=== PATIENT | female | born 1935 | race Caucasian/White ===

== ENCOUNTER 2017-02-15 08:59 | Observation (INO) ==
[2017-02-15 10:09] LABS: Hemoglobin 13.6 g/dL (11.5-15.4); Mean Corpuscular HGB Conc 32.4 g/dL (31.6-35.5); Mean Corpuscular Hemoglobin 28.1 pg (28.0-33.3); Mean Corpuscular Volume 86.8 fL (83.0-100.0); Mean Platelet Volume 9.6 fL (9.4-12.4); Platelet Count 219 K/mcL (140-400); Red Blood Count 4.84 M/mcL (3.82-4.97); Red Cell Distribution Width 14.1 % (11.5-14.5)
--- NOTE | 2017-02-15 10:12 | Emergency Department Note ---
Disposition Clinical Impression: Slurred speech, Vertigo, Altered level of consciousness, Torticollis Headache Qualifiers: Headache type: unspecified Headache chronicity pattern: acute headache Intractability: not intractable Qualified Code(s): R51 - Headache Disposition: Admitted As Inpatient Condition: Fair Referrals: Annette Yeh CNP [Primary Care Provider] - Forms: ED Satisfaction Letter Headache HPI - General Chief Complaint: ED Headache Stated Complaint: Neck / Back Pain / DAVIS Time Seen by Provider: 02/15/17 09:06 Limitations: no limitations Nursing Notes Reviewed: Yes Vital Signs Reviewed: Yes - History of Present Illness HPI Narrative: Presents with multiple complaints including neck pain, head pain, vertigo and confusion. Her head pain began gradually yesterday at home and is located in the right posterior occipital area and this is constant and sharp and she denies any numbness or weakness of the extremities, facial droop. She does have some slurred speech which has been intermittently occurring for about one year but worse for the last several weeks and is worse today. She also does say she has some intermittent confusion with same duration and is also worse over the last several weeks. She denies any mechanism of injury of her neck however the neck pain is posterior right neck just below the occipital area and is worse when she turns her head. She does not have any fever, blurred vision, rhinorrhea, cough, sneezing, blood in the urine or stool, pain or swelling of the extremities, skin rash or bruising of the skin. The vertigo has also been present for about one year and is worse the last several weeks and is not worse when she turns her head. It is vertiginous dizziness and not lightheaded dizziness. Social history: No smoking, alcohol, drugs. Is here with her Pain Scale: 10 - Related Data Home Medications Medication Instructions Recorded Confirmed Amlodipine Besylate 2.5 mg PO BID 02/15/17 02/15/17 Amoxicillin 875 mg PO BID 02/15/17 02/15/17 Baclofen [Lioresal] 10 mg PO DAILY 02/15/17 02/15/17 Budesonide/Formoterol 160/4.5 2 puff IH BIDR 02/15/17 02/15/17 [Symbicort 160/4.5] Dorzolamide/Timolol [Cosopt] 1 drop BOTH EYES BID 02/15/17 02/15/17 Meclizine [Antivert] 12.5 mg PO TID 02/15/17 02/15/17 Omeprazole [PriLOSEC] 40 mg PO DAILY 02/15/17 02/15/17 Sertraline [Zoloft] 100 mg PO DAILY 02/15/17 02/15/17 Tolterodine Tartrate [Detrol] 2 mg PO BID 02/15/17 02/15/17 Trospium Chloride 20 mg PO BID 02/15/17 02/15/17 Allergies Allergy/AdvReac Type Severity Reaction Status Date / Time No Known Allergies Allergy Verified 03/06/15 10:41 Review of Systems: She does not have any fever, blurred vision, rhinorrhea, cough, sneezing, blood in the urine or stool, pain or swelling of the extremities, skin rash or bruising of the skin. Headache PMH - Past Medical History Medical history: Reports: arthritis, GERD, hypertension, other Female Surgical History: Reports: orthopedic, other Psychiatric history: Reports: anxiety [employer]ET[employer]IAN history: Reports: no [employer] VETERINARIAN history - Social History Smoking Status: Never smoker Alcohol use: Reports: none Drug use: Reports: none Physical Exam CONSTITUTIONAL: Well-appearing; well-nourished; A&O X3, in no apparent distress HEAD: Normocephalic; atraumatic. EYES: PERRL, EOMI, no scleral icterus NOSE: The nose is normal in appearance without rhinorrhea NECK: Supple without rigidity, no HARIKA, there is pain with palpation of the right posterior neck musculature and the patient is holding her head in a fixed position and does have objective evidence of pain when she turns her head side- to-side RESP: Normal chest excursion with respiration; breath sounds clear and equal bilaterally; no wheezes, rhonchi, or rales CARD: Regular rhythm, without murmurs, rub or gallop ABD: Non-distended; non-tender, soft, without rigidity, rebound or guarding SKIN: Normal for age and race; warm and dry; no apparent lesions, no rash NEUROLOGICAL: Patient is alert and oriented times three. Cranial nerves III- XII are intact. Sensory and motor functions are intact. Strength is 5/5 for flexion and extension in all 4 extremities. Finger to nose testing is equal and normal bilaterally. EXTREMITIES: Pulses are 2 plus and equal times 4 extremities, no peripheral edema or calf muscle pain. - General Limitations: no limitations General appearance: alert, in no apparent distress Course Vital Signs Temperature 98.5 F 02/15/17 09:01 Pulse Rate 79 02/15/17 09:01 Respiratory Rate 16 02/15/17 09:01 Blood Pressure 129/74 02/15/17 09:01 O2 Sat by Pulse Oximetry 96 02/15/17 09:01 Temperature 98.5 F 02/15/17 09:01 Pulse Rate 84 02/15/17 10:04 Respiratory Rate 18 02/15/17 10:04 Blood Pressure 139/81 02/15/17 10:04 O2 Sat by Pulse Oximetry 96 02/15/17 10:04 Oxygen Delivery Oxygen Delivery Room Air Headache - MDM Narrative Medical decision making narrative: Patient's symptoms are most consistent with torticollis however there is no mechanism of injury and she does have concerning findings including confusion, vertigo and for that reason she will have a noncontrast head CT as well as a CT of the neck for dissection as well as a chest x-ray and labs. I did review her EKG which shows normal sinus rhythm with a rate of 84 without acute ischemic change. Axes are normal duration of QRS and SD interval are normal. I did compares to previous EKG without significant change. Patient will be watched on the court monitor. [id number] I did review the patient's laboratory and radiologic evaluation with a negative CTA, head CT noncontrast, chest x-ray and the patient does have concerning symptoms including vertigo, confusion, slurred speech so for that reason she will be admitted to the hospital for further evaluation with consideration of MRI scan of the brain and neurologic consultation. The patient is not a thrombolytic candidate as her symptoms started yesterday and does have prolonged duration of symptoms. The patient's stroke scale is 0 and this has been documented. The hospitalist will be paged. 1142 I did speak with the hospitalist physician who except the patient for admission. The patient is comfortable with admission plan. 1148 - Medical Records Medical records reviewed: Yes I reviewed the patient's medical records. - Lab Data Lab results reviewed: Yes I reviewed the patient's lab results. Result diagrams: 02/15/17 10:01 02/15/17 10:01 Lab Results 02/15/17 02/15/17 Range/Units 10:01 10:01 WBC 11.7 H (4.3-11.1) K/mcL RBC 4.84 (3.82-4.97) M/mcL Hgb 13.6 (11.5-15.4) g/dL Hct 42.0 (35.3-44.9) % MCV 86.8 (83.0-100.0) fL MCH 28.1 (28.0-33.3) pg MCHC 32.4 (31.6-35.5) g/dL RDW 14.1 (11.5-14.5) % Plt Count 219 (140-400) K/mcL MPV 9.6 (9.4-12.4) fL Sodium 138 (136-145) mEq/L Potassium 4.1 (3.5-4.5) mEq/L Chloride 105 (98-109) mEq/L Carbon Dioxide 23 (19-29) mEq/L BUN 22 H (7-20) mg/dL Creatinine 0.95 (0.57-1.11) mg/dL Est GFR ( Amer) > 60 (> 60) Est GFR (Non-Af Amer) 57 L (> 60) BUN/Creatinine Ratio 23 (6-26) Glucose 129 H (70-99) mg/dL Calculated Osmolality 291 (280-300) Calcium 9.7 (8.6-10.8) mg/dL - Radiology Data Radiology results reviewed: Yes I reviewed the patient's radiology results. NIH Stroke Scale - Level of Consciousness LOC: Alert - LOC Questions LOC Questions: Answers both correctly - LOC Commands LOC Commands: Performs both correctly - Best Gaze Best Gaze: Normal - Visual Visual: No visual loss - Facial Palsy Facial Palsy: Normal - Motor Arms Motor Arm-Left: No drift for 10 seconds Motor Arm-Right: No drift for 10 seconds - Motor Legs Motor Leg-Left: No drift for 5 seconds Motor Leg-Right: No drift for 5 seconds - Limb Ataxia Limb Ataxia: Normal, No Ataxia - Sensory Sensory: Normal - Best Language Best Language: No aphasia - Dysarthria Dysarthria: Normal - Extinction and Inattention Extinction and Inattention: Normal - NIHSS Total Score NIHSS Total Score: 0
[2017-02-15 10:21] LABS: BUN/Creatinine Ratio 23 (6-26); Blood Urea Nitrogen 22 mg/dL (7-20); Calcium 9.7 mg/dL (8.6-10.8); Carbon Dioxide 23 mEq/L (19-29); Chloride 105 mEq/L (98-109); Glucose 129 mg/dL (70-99); Osmolality,Calculated 291 (280-300); Potassium 4.1 mEq/L (3.5-4.5); Sodium 138 mEq/L (136-145); eGFR For African Americans > 60 (> 60); eGFR For Non-African Americans 57 (> 60)
[2017-02-15] MEDS ORDERED: Naloxone 0.4 MG/ML INJ IVP PRN (13:25)
[2017-02-15] MEDS: *HR* HYDROcodone/Acet 5/325 mg TABLET PO PRN ×2 (13:37→20:39)
--- NOTE | 2017-02-15 13:41 | Internal Med History&Physical ---
Date of Encounter: 02/15/17 Time of Encounter: 13:36 Assessment and Plan (1) CVA (cerebral vascular accident) Current visit: Yes Status: Suspected Patient presents [facility] today with new slurred speech, worsening vertigo, confusion and changes in cognition, and right posterior occipital headache with right posterior neck pain. This is concerning for possible CVA and the patient will need to be ruled out. CTA of neck was unremarkable showing no stenosis of left or right carotid artery, no dissection , only mild narrowing of left subclavian artery. CT of head was negative for any acute cranial process only exhibiting mild chronic small vessel ischemic changes. MRI of head without contrast Urinalysis ordered with reflex if indicated TSH, and cycle troponins Orthostatic vital signs Every 4 hours neuro checks NIH SS Consider consulting neurology based upon results of MRI Qualifiers: CVA mechanism: unspecified Qualified Code(s): I63.9 - Cerebral infarction, unspecified (2) Headache Current visit: Yes Status: Acute Patient is experiencing right posterior occipital headache, and strokelike symptoms. CT of the head unremarkable, CT of neck unremarkable, patient does not appear to have had a CVA however continues to be ruled out at this time. The headache is also associated with right neck pain and torticollis. I suspect that the torticollis is responsible for the posterior occipital headache. Flexeril 10 mg 3 times a day. Qualifiers: Headache type: unspecified Headache chronicity pattern: acute headache Intractability: not intractable Qualified Code(s): R51 - Headache (3) Vertigo Current visit: Yes Status: Chronic Patient has history of chronic vertigo which she takes meclizine. However, at this time the vertigo appears to be getting worse and she is now having slurred speech, cognitive changes, and headache. CTA neck and CT of head were unremarkable. Patient will undergo MRI of head without contrast for further evaluation Continue meclizine on dose falls percussion and up with assist only (4) Torticollis Current visit: Yes Status: Acute Acute right neck pain accompanied by right posterior occipital headache. Patient reports the pain again possibly 48 hours ago, however with the last 24 hours and progressively worse. Flexeril 10 mg 3 times a day [place] 5/325 every 6 hours when necessary for moderate pain. We will adjust pain medications as necessary and as patient tolerates. (5) DVT prophylaxis Current visit: Yes Status: Acute Due to hospital course and prolonged immobility patient is a risk for DVT. Lovenox 40 mg subcutaneous daily Internal Medicine - H&P: HPI Chief complaint: slurred speech, vertigo, posterior neck and head pain, alterations in LOC Admitted From: Home Plans for Post Hospital Care: Home History of present illness: Ms. Telles is a 81 year old female with a past medical history of arthritis, GERD , hypertension, anxiety. Presents to the emergency today with a 2 day history of slurred speech, vertigo, alterations in level of consciousness, and posterior right occipital head and right neck pain. She describes this pain as constant and sharp, the pain began 2 days ago has been progressively getting worse for the last day. Denies any mechanism of injury. She is concerned because she noticed some intermittent confusion with what she reports as some short-term memory loss over the last several weeks, with confusion getting worse over the last 48 hours and even more pronounced within the last 24 hours. She admits to having the vertigo for greater than one year. Which she is on meclizine, however, the vertigo appears to be worse within the last day. Additionally she admits to headache fatigue, new blurred vision, gait changes with what she reports as a shuffling gait, slurred speech, and troubles with cognition. She denies any weight loss, night sweats, chest pain, palpitations, dyspnea. CTA of neck did not find any stenosis in the left or right carotid artery, no dissection noted, only mild narrowing of left subclavian artery secondary to atherosclerotic plaque. CT of head finds no acute intracranial process, only finding chronic small vessel ischemic changes. Metabolic panel unremarkable, CBC, WBC of 11.7. She is being admitted to [address] for further workup and evaluation Past Med Surg Social Fam HX - Past Medical History Medical history: arthritis, GERD, hypertension, other Psychiatric history: anxiety - Past Surgical History Surgical History: orthopedic, other - Social History Smoking Status: Never smoker Smokeless Tobacco Status: No Alcohol use: none Drug use: none - Family History Mother Living Status: Age at : 94 Cause of : Afib Hx Family Cardiac Disorders: Yes (Afib) Hx Family Endocrine Disorder: Yes (Borderline Diabetic) Father Living Status: Age at : 80 Cause of : diverticulitis Hx Family GI Disorders: Yes (diverticulitis) Hx Family Endocrine Disorder: Yes (diabetes) Internal Medicine - H&P: Meds Amlodipine Besylate 2.5 mg PO BID 02/15/17 [History] Amoxicillin 875 mg PO BID 02/15/17 [History] Baclofen [Lioresal] 10 mg PO DAILY 02/15/17 [History] Budesonide/Formoterol 160/4.5 [Symbicort 160/4.5] 2 puff IH BIDR 02/15/17 [ History] Dorzolamide/Timolol [Cosopt] 1 drop BOTH EYES BID 02/15/17 [History] Meclizine [Antivert] 12.5 mg PO TID 02/15/17 [History] Omeprazole [PriLOSEC] 40 mg PO DAILY 02/15/17 [History] Sertraline [Zoloft] 100 mg PO DAILY 02/15/17 [History] Tolterodine Tartrate [Detrol] 2 mg PO BID 02/15/17 [History] Trospium Chloride 20 mg PO BID 02/15/17 [History] 3 Allergy/AdvReac Type Severity Reaction Status Date / Time azithromycin [From Zithromax] AdvReac Rash Verified 02/15/17 12:49 All Systems PM: A 10-system review of systems was performed and is negative for pertinent findings except as documented above in the HPI. - Constitutional Constitutional: fatigue, lethargy, no chills, no excessive sweating, no fever(s) , no falls, no night sweats, no weakness, no weight loss - EENT Eyes: blurry vision, no change in vision, no discharge, no loss of peripheral vision, no loss of vision, no pain, no photophobia, no spots in vision Ears: decreased hearing (Has decreased hearing but admits that of an ongoing greater than 3 years and is being treated), no ear discharge, no ear pain, no tinnitus Nose, mouth and throat: no dysphagia, no nasal discharge, no neck pain, no sore throat - Cardiovascular Cardiovascular ROS IM: no chest pain, no diaphoresis, no dyspnea, no dyspnea on exertion, no edema, no irregular heart rhythm, no lightheadedness, no palpitations, no syncope - Respiratory Respiratory: no cough, no dyspnea, no wheezing, no excessive phlegm production - Gastrointestinal Gastrointestinal: no abdominal pain, no diarrhea, no hematemesis, no hematochezia, no melena, no nausea, no vomiting - Genitourinary Genitourinary: no change in urinary stream, no dysuria, no flank pain, no hematuria - Musculoskeletal Musculoskeletal ROS IM: no numbness, no tingling - Integumentary Integumentary IM: no rash, no unusual bruising - Neurological Neurological ROS: abnormal gait (She mentions a new shuffling gait), abnormal speech, confusion (Intermittent confusion and notes changes in cognition from her baseline), disequilibrium, dizziness, headache(s) (Posterior occipital headache and right neck pain), memory loss (10 minutes to maybe some short-term memory loss), vertigo, no burning sensations, no convulsions, no focal weakness , no frequent falls, no lack of coordination, no loss of vision, no numbness, no tingling, no tremor(s) - Hematologic/Lymphatic Hematologic/Lymphatic: no easy bruising - Constitutional Vitals: Temp Pulse Resp BP Pulse Ox 98.6 F 88 17 167/80 93 02/15/17 12:32 02/15/17 12:32 02/15/17 12:32 02/15/17 12:32 02/15/17 12:32 General appearance: Present: cooperative, mild distress, A&O X 3, answers questions appropriately - Head Head exam: Present: atraumatic, normocephalic - Eye Eye exam: Present: PERRL, conjuntiva pink, sclera anicteric Pupils: Present: PERRL - Neck Neck exam general surgery: Present: nuchal rigidity (Rigidity and tortuosity noted on right neck; patient has torticollis), supple, trachea midline. Absent : full ROM, lymphadenopathy, tenderness - Expanded Neck Exam Neck exam: Absent: anterior neck swelling, carotid bruit, tenderness, thyroid mass, tracheal deviation - Respiratory Respiratory exam: Present: CTAB. Absent: accessory muscle use, rales, rhonchi, wheezes - Cardiovascular Cardiovascular exam: Present: RRR, +S1, +S2. Absent: diastolic murmur, gallop, rubs, systolic murmur - GI/Abdominal GI/Abdominal exam: Present: normal bowel sounds, soft, no peritoneal signs. Absent: distended, tenderness - Extremities Exam Extremities exam: Present: warm, radial pulses palpable and symmetrical. Absent : calf tenderness, cyanotic, pedal edema - Neurological Exam Neurological exam: Present: alert, CN II-XII intact, oriented X3, no focal deficits, strengths equal and symetr throughout. Absent: motor sensory deficit , pronater drift, facial droop, speech deficit - Expanded Neurological Exam Neurological exam expanded: Absent: expressive aphasia, inattentive, memory loss -recent event, receptive aphasia Patient oriented to: Present: person, place, time Speech: Absent: garbled, slurred Cranial Nerves: EOM's intact PM: Normal, gag reflex PM: Normal, nystagmus PM: Normal, tongue deviation PM: Normal Cerebellar function: heel to takins: Normal, Romberg: Normal Upper motor neuron: Babinski sign: Normal, Todd neglect: Normal, pronator drift : Normal, sensory extinction: Normal Sensory exam: lower extremity light touch: Normal, lower extremity pin prick: Abnormal Left, Abnormal Right (Minimal amount of difficulty differentiating between sharp and dull sensation), lower extremity temperature: Normal, UE 2 point discrimination: Normal Neuro motor strength exam: LUE: 5, RUE: 5, LLE: 5, RLE: 5 Coma Scale Eye Opening: Spontaneous Coma Scale Motor Response: Obeys Commands Coma Scale Verbal Response: Oriented Coma Scale Total: 15 - Skin Skin exam: Present: dry, intact Internal Med - H&P Results - Labs CBC & Chem 7: 02/15/17 10:01 02/15/17 10:01 - EKG Data Prior EKG available for review: yes When compared to previous EKG: there is no significant change EKG comments: 02/15/17 13:48 EKG showing normal sinus rhythm - Diagnostic Studies CT scan - head Status: image reviewed by me Additional comments: CT of the head negative for acute intracranial process, only revealing mild chronic small vessel ischemic changes Other Images Status: image reviewed by me Additional comments: CTA of neck negative for stenosis of right or left carotid artery, no dissection noted, only exhibiting mild narrowing of the left subclavian artery secondary to atherosclerotic plaque.
[2017-02-15 15:00] LABS: C-Reactive Protein 46 mg/L (Less than 5)
--- NOTE | 2017-02-15 17:11 | Electrocardiograph Report ---
[place] [id number] Test Date: 2017-02-15 Pat Name: Ciro Telles Department: 104 Room: 3B Gender: F Cobbler Sole: AM : 1935 Requested By: Mik Pascal Order Number: [id number] Reading MD: Quentin Del Rosario DO Measurements Intervals [place] Rate: 84 P: 52 TN: 152 QRS: -26 QRSD: 95 T: 52 QT: 367 QTc: 408 Interpretive Statements SINUS RHYTHM Electronically Signed On 02-15-2017 17:10:10 EDT by Quentin Del Rosario DO
[2017-02-15] MEDS: Budesonide/Formoterol 160/4.5 MDI IH SCH (19:43)
[2017-02-15] MEDS: Amoxicillin 500 MG CAPSULE PO SCH (20:39)
[2017-02-15] MEDS: amLODIPine 5 MG TABLET PO SCH (20:40)
[2017-02-15] MEDS: Dorzolamide/Timolol OPTH 10 ML BOTTLE BOTH EYES SCH (20:44)
[2017-02-15] MEDS ORDERED: NON-FORMULARY MEDICATION 1 EACH EACH (Trospium Chloride [Trospium Chloride] 20 MG) PO SCH (21:00)
[2017-02-15 21:59] LABS: Bilirubin,Urine Negative (Negative); Blood,Urine Trace (Negative); Clarity,Urine Clear (Clear); Color,Urine Yellow (Yellow); Glucose,Urine (UA) Normal (Normal); Ketones,Urine Negative (Negative); Leukocyte Esterase,Urine Negative (Negative); Nitrite,Urine Negative (Negative); Protein,Urine Negative (Neg-Trace); Specific Gravity,Urine > 1.030 (1.010-1.025); Urobilinogen,Urine Normal (Normal)
[2017-02-15 22:03] LABS: Bacteria,Urine None Seen per hpf (None-Few); Hyaline Casts,Urine None Seen per lpf (None-Few); RBC,Urine 0-3 per hpf (0-3); Squamous Epithelial Cell,Urine Moderate per lpf (None-Few); WBC,Urine 0-3 per hpf (0-3)
[2017-02-15] MEDS ORDERED: *HR* Morphine 2 MG/ML SYRINGE IVP STA (22:44)
[2017-02-16 02:07] LABS: Basophils % 0.2 %; Eosinophils # 0.1 K/mcL (0.0-0.6); Eosinophils % 0.6 %; Hematocrit 38.8 % (35.3-44.9); Hemoglobin 12.6 g/dL (11.5-15.4); Immature Granulocytes % 0.7 % (0-4); Lymphocytes # 1.7 K/mcL (0.6-4.6); Lymphocytes % 16.6 %; Mean Corpuscular HGB Conc 32.5 g/dL (31.6-35.5); Mean Corpuscular Hemoglobin 28.4 pg (28.0-33.3); Mean Corpuscular Volume 87.4 fL (83.0-100.0); Mean Platelet Volume 9.2 fL (9.4-12.4); Monocytes # 1.1 K/mcL (0.0-1.3); Monocytes % 10.5 %; Neutrophils # 7.2 K/mcL (1.6-8.9); Platelet Count 205 K/mcL (140-400); Red Blood Count 4.44 M/mcL (3.82-4.97); Red Cell Distribution Width 14.1 % (11.5-14.5); Segmented Neutrophils % 71.4 %
[2017-02-16 02:19] LABS: BUN/Creatinine Ratio 19 (6-26); Blood Urea Nitrogen 17 mg/dL (7-20); Calcium 9.4 mg/dL (8.6-10.8); Carbon Dioxide 25 mEq/L (19-29); Chloride 103 mEq/L (98-109); Glucose 127 mg/dL (70-99); Osmolality,Calculated 285 (280-300); Potassium 3.9 mEq/L (3.5-4.5); Sodium 136 mEq/L (136-145); eGFR For African Americans > 60 (> 60); eGFR For Non-African Americans > 60 (> 60)
[2017-02-16] MEDS: *HR* HYDROcodone/Acet 5/325 mg TABLET PO PRN (05:54)
[2017-02-16] MEDS ORDERED: *HR* Enoxaparin 40 MG/0.4 ML SYRINGE SQ SCH (06:00)
[2017-02-16] MEDS: Budesonide/Formoterol 160/4.5 MDI IH SCH (07:51)
[2017-02-16] MEDS: Ketorolac 30 MG/ML VIAL IVP PRN ×2 (08:02→14:16)
[2017-02-16 08:32] LABS: Hemoglobin A1C 5.7 %
[2017-02-16] MEDS: Amoxicillin 500 MG CAPSULE PO SCH (08:34)
[2017-02-16] MEDS: amLODIPine 5 MG TABLET PO SCH (08:35)
[2017-02-16] MEDS: Dorzolamide/Timolol OPTH 10 ML BOTTLE BOTH EYES SCH (08:37)
[2017-02-16 08:56] LABS: Chol/HDL Ratio 4.1 (0-4.9); Cholesterol 204 mg/dL (< 200); HDL Cholesterol 50 mg/dL (40-59); LDL Cholesterol,Calculated 133 mg/dL (0-99); Triglycerides 104 mg/dL (< 150)
[2017-02-16] MEDS ORDERED: Baclofen 10 MG TABLET PO PRN (09:45)
[2017-02-16 11:45] VITALS: BP 123/73
--- NOTE | 2017-02-16 13:38 | Discharge Summary ---
Date of Encounter: 02/16/17 Time of Encounter: 10:00 - Discharge Diagnosis (1) Cervicalgia Priority: Primary Status: Acute (2) Vertigo Priority: Secondary Status: Chronic (3) Headache Priority: Secondary Status: Chronic Qualifiers: Headache type: unspecified Headache chronicity pattern: acute headache Intractability: not intractable Qualified Code(s): R51 - Headache (4) Torticollis Priority: Secondary Status: Acute (5) CVA (cerebral vascular accident) Priority: Secondary Status: Ruled-out Qualifiers: CVA mechanism: unspecified Qualified Code(s): I63.9 - Cerebral infarction, unspecified - Discharge Medications Prescriptions: Ibuprofen [Motrin] 600 mg PO Q8HR #20 tab Cyclobenzaprine [Flexeril] 10 mg PO TID #30 tab Tramadol HCl [Ultram] 50 mg PO TID PRN #20 tab PRN Reason: Moderate to severe pain Home Medications: Amlodipine Besylate 2.5 mg PO BID 02/15/17 [History] Amoxicillin 875 mg PO BID 02/15/17 [History] Baclofen [Lioresal] 10 mg PO DAILY 02/15/17 [History] Budesonide/Formoterol 160/4.5 [Symbicort 160/4.5] 2 puff IH BIDR 02/15/17 [ History] Dorzolamide/Timolol [Cosopt] 1 drop BOTH EYES BID 02/15/17 [History] Meclizine [Antivert] 12.5 mg PO TID 02/15/17 [History] Omeprazole [PriLOSEC] 40 mg PO DAILY 02/15/17 [History] Sertraline [Zoloft] 100 mg PO DAILY 02/15/17 [History] Tolterodine Tartrate [Detrol] 2 mg PO BID 02/15/17 [History] Trospium Chloride 20 mg PO BID 02/15/17 [History] Cyclobenzaprine [Flexeril] 10 mg PO TID #30 tab 02/16/17 [Rx] Ibuprofen [Motrin] 600 mg PO Q8HR #20 tab 02/16/17 [Rx] Tramadol HCl [Ultram] 50 mg PO TID PRN #20 tab 02/16/17 [Rx] Allergies/Adverse Reactions: 3 Allergy/AdvReac Type Severity Reaction Status Date / Time azithromycin [From Zithromax] AdvReac Rash Verified 02/15/17 12:49 Procedures/tests Complete & Pending: Procedures Performed prior 72 hours Category Date Time Status CT cervical spine wo con [CT] Routine Cat Scan 02/15/17 14:19 Completed MR head/brain wo con [MR] Routine MRI 02/15/17 13:16 Completed Date of admission: 02/15/17 11:58 Primary care physician: Annette Yeh CNP Discharging clinician: Salvatore Herman Anticipated date of discharge: 02/16/17 - Patient Status Disposition: Home, Self-Care Condition: Fair Functional capacity at discharge: independent ambulation Overall status at discharge: patient is progressing back to baseline - Discharge Instructions Instructions: Tension Headache (DC), Vertigo (DC), Spasmodic Torticollis (DC) Follow Up With: Annette Yeh CNP [Primary Care Provider] - 02/27/17 4:15 pm (in 1-2 weeks) Additional Instructions: Please follow up with neurology in 1-2 weeks if symptoms do not improve - Diet and Activity Activity: increase activity as tolerated Diet: low fat, low cholesterol, low salt diet Hospital course: Ms. Telles is a 81 year old female patient with a history of arthritis, hypertension, gastroesophageal reflux disease, rheumatoid arthritis was hospitalized here with symptoms of right-sided neck pain and occipital headache. She also had chronic complaints of a tight though intermittent confusion and slurred speech. As such she was worked up for possible TIA and stroke with CT scan of the head and MRI of the brain which did not show any acute stroke. CT angiogram of the neck was also done which did not show any significant stenosis. She appeared to be having torticollis on examination with the right-sided paraspinal tenderness in the cervical region. A CT scan of the cervical spine was done which showed no fracture but she did have multilevel degenerative changes. Her pain did not respond to narcotic medications. She did receive Flexeril and intravenous Toradol which seemed to help the pain better. At this time, she will be discharged home and will follow up with her primary care provider. She will complete a short course of treatment with Motrin and Flexeril for pain control and torticollis. If her symptoms do not improve, she may benefit from referral to neurology for additional evaluation and treatment plan. - Time Spent with Patient Total time spent providing and/or coordinating discharge services: Greater than 30 minutes (40 min) - Constitutional Vitals: Temp Pulse Resp BP Pulse Ox 97.5 F L 74 18 123/73 91 02/16/17 11:43 02/16/17 11:43 02/16/17 08:10 02/16/17 11:43 02/16/17 11:43 General appearance: Present: cooperative, mild distress, A&O X 3, answers questions appropriately - Neck Neck exam general surgery: Present: tenderness (right cervical paraspinal region ), supple, trachea midline. Absent: lymphadenopathy - Respiratory Respiratory exam: Present: CTAB. Absent: accessory muscle use, rales, rhonchi, wheezes - Cardiovascular Cardiovascular exam: Present: RRR, +S1, +S2. Absent: diastolic murmur, gallop, rubs, systolic murmur - GI/Abdominal GI/Abdominal exam: Present: normal bowel sounds, soft, no peritoneal signs. Absent: distended, tenderness - Extremities Exam Extremities exam: Present: warm, radial pulses palpable and symmetrical. Absent : calf tenderness, cyanotic, pedal edema - Neurological Exam Neurological exam: Present: CN II-XII intact, oriented X3, no focal deficits. Absent: facial droop, speech deficit
== END 2017-02-16 14:55 | disposition home or self-care (01) ==
LOC: 3BNU 08:59 → EMEROO 08:59 → SUATTDRO 11:58 → 3BNU 12:17
PROVIDERS: ADMIT Nurse Practitioner; ATTEND Internal Medicine

== ENCOUNTER 2021-04-19 16:33 | Inpatient (IN) ==
[2021-04-19] MEDS ORDERED: Naloxone 0.4 MG/ML INJ IVP PRN (22:11)
[2021-04-19] MEDS ORDERED: *HR* HYDROcodone/Acet 5/325 mg TABLET PO PRN (22:11)
[2021-04-19] MEDS ORDERED: Melatonin 3 MG TABLET PO PRN (22:11)
[2021-04-19] MEDS ORDERED: Acetaminophen 325 MG TABLET PO PRN (22:11)
[2021-04-19] MEDS ORDERED: Ondansetron ODT 4 MG TAB.RAPDIS SL PRN (22:11)
[2021-04-19] MEDS: *HR* OxyCODONE Immed Rel 5 MG TABLET PO PRN (22:45)
[2021-04-19 23:04] LABS: Basophils % 0.3 %; Eosinophils # 0.1 K/mcL (0.0-0.6); Eosinophils % 0.7 %; Hematocrit 36.6 % (35.3-44.9); Immature Granulocytes % 0.9 % (0-4); Lymphocytes # 1.1 K/mcL (0.6-4.6); Lymphocytes % 10.9 %; Mean Corpuscular HGB Conc 32.8 g/dL (31.6-35.5); Mean Corpuscular Hemoglobin 29.8 pg (28.0-33.3); Mean Corpuscular Volume 90.8 fL (83.0-100.0); Mean Platelet Volume 9.5 fL (9.4-12.4); Monocytes # 0.6 K/mcL (0.0-1.3); Neutrophils # 8.2 K/mcL (1.6-8.9); Platelet Count 212 K/mcL (140-400); Red Blood Count 4.03 M/mcL (3.82-4.97); Red Cell Distribution Width 13.8 % (11.5-14.5); Segmented Neutrophils % 81.2 %; White Blood Count 10.1 K/mcL (4.3-11.1)
[2021-04-20] MEDS: *HR* OxyCODONE Immed Rel 5 MG TABLET PO PRN (04:58)
[2021-04-20 05:20] LABS: Alanine Aminotransferase 11 Units/L (7-52); Albumin 3.6 g/dL (3.5-5.7); Albumin/Globulin Ratio 1.4 (1.1-2.2); Alkaline Phosphatase 77 Units/L (34-104); Aspartate Amino Transferase 18 Units/L (13-39); BUN/Creatinine Ratio 19 (6-26); Bilirubin,Total 0.6 mg/dL (0.3-1.0); Blood Urea Nitrogen 16 mg/dL (8-23); Calcium 8.8 mg/dL (8.6-10.3); Carbon Dioxide 27 mEq/L (23-29); Chloride 102 mEq/L (98-107); Chol/HDL Ratio 4.2 (0-4.9); Cholesterol 202 mg/dL (< 200); Globulin 2.6 g/dL (2.4-3.5); Glucose 125 mg/dL (70-105); HDL Cholesterol 48 mg/dL (40-59); LDL Cholesterol,Calculated 127 mg/dL (< 100); Magnesium 1.7 mg/dL (1.6-2.6); Osmolality,Calculated 285 (280-300); Potassium 3.6 mEq/L (3.5-5.1); Sodium 136 mEq/L (136-145); Total Protein 6.2 g/dL (6.4-8.9); Triglycerides 136 mg/dL (< 150); eGFR For African Americans > 60 (> 60); eGFR For Non-African Americans > 60 (> 60)
[2021-04-20] MEDS ORDERED: 0.9 % Sodium Chloride 1,000 ML IVC SCH (07:00)
[2021-04-20] MEDS ORDERED: *HR* Propofol 200 MG/20 ML VIAL IVP ONE (12:23)
[2021-04-20] MEDS ORDERED: Lidocaine -MPF 2% 5 ML VIAL ONE (12:23)
[2021-04-20] MEDS ORDERED: *HR* Rocuronium Bromide 50 MG/5 ML VIAL ONE (12:23)
[2021-04-20] MEDS ORDERED: Ondansetron 4 MG/2 ML VIAL ONE (12:23)
[2021-04-20] MEDS ORDERED: Lidocaine HCL 4 ML Topical Solution (Laryng-O-Jet Kit Sterile Pak) TP ONE (12:23)
[2021-04-20] MEDS ORDERED: *HR* FentaNYL (PF) 100 MCG/2 ML VIAL ONE (12:23)
[2021-04-20] MEDS ORDERED: *HR* Succinylcholine 200 MG/10 ML VIAL IVP ONE (12:23)
[2021-04-20] MEDS ORDERED: CeFAZolin Syr 2,000MG/20 ML 2,000 MG/20 ML SYRINGE IVPB ONE (12:29)
[2021-04-20] MEDS ORDERED: *HR* FentaNYL (PF) 100 MCG/2 ML VIAL IVP PRN (12:43)
[2021-04-20] MEDS ORDERED: *HR* OxyCODONE/APAP 5/325 TABLET PO PRN (12:43)
[2021-04-20] MEDS ORDERED: Ondansetron 4 MG/2 ML VIAL IVP PRN ×2 (12:43→17:08)
[2021-04-20] MEDS ORDERED: Ringers Solution, Lactated 1,000 ML IVC SCH ×3 (12:45→22:10)
[2021-04-20] MEDS ORDERED: Albumin Human 5% 25.0 GM/500 ML IV.SOLN ONE (13:28)
[2021-04-20] MEDS ORDERED: Vancomycin 1,000 MG VIAL ONE (13:36)
[2021-04-20] MEDS ORDERED: TOTAL JOINT MIXTURE (100ML) INTRAART ONE (13:45)
[2021-04-20] MEDS ORDERED: Povidone-Iodine 45 ML, Sodium Chloride IRRigation 1,000 ML IR ONE (13:45)
[2021-04-20 14:44] LABS: Bilirubin,Urine Negative (Negative); Blood,Urine Trace (Negative); Clarity,Urine Turbid (Clear); Color,Urine Light-Yellow (Yellow); Glucose,Urine (UA) Normal (Normal); Ketones,Urine Trace mg/dL (Negative); Leukocyte Esterase,Urine Trace (Negative); Nitrite,Urine Negative (Negative); Protein,Urine 100 mg/dL (Neg-Trace); Specific Gravity,Urine 1.024 (1.010-1.025); Urobilinogen,Urine Normal (Normal)
[2021-04-20 14:47] LABS: Squamous Epithelial Cell,Urine Present per hpf (None-Few)
[2021-04-20 14:48] LABS: RBC,Urine Present per hpf (0-3); Transitional Epi Cells,Urine Present per hpf (None-Few)
[2021-04-20 14:49] LABS: Bacteria,Urine Present per hpf (None-Few); WBC,Urine Present per hpf (0-3)
[2021-04-20] MEDS ORDERED: *HR* Remifentanil 2 MG VIAL IVP ONE (15:44)
[2021-04-20 16:48] LABS: ABG Base Excess -4 mEq/L (-2 to 3); ABG Chloride 108 mEq/L (98-107); ABG Glucose 123 mg/dL (60-95); ABG HCO3 21 mEq/L (21-27); ABG Ionized Calcium 1.15 mmol/L (1.15-1.35); ABG Oxygen Saturation 96 % (95-98); ABG PCO2 37 mmHg (35-45); ABG PH 7.37 pH Units (7.32-7.45); ABG PO2 86 mmHg (85-104); ABG TCO2 23 mEq/L (20-26)
[2021-04-20] MEDS ORDERED: Sugammadex Sodium 200 MG/2 ML VIAL IV ONE (16:58)
[2021-04-20] MEDS ORDERED: Naloxone 0.4 MG/ML INJ IVP PRN ×2 (17:08→22:10)
[2021-04-20] MEDS ORDERED: Sennosides 8.6 MG TABLET PO PRN ×2 (17:08→22:10)
[2021-04-20] MEDS ORDERED: *HR* OxyCODONE Immed Rel 5 MG TABLET PO PRN ×2 (17:08→22:10)
[2021-04-20] MEDS ORDERED: *HR* Promethazine 25 MG/ML VIAL IM PRN ×2 (17:08→22:10)
[2021-04-20] MEDS ORDERED: MOM Conc 10 ML UD.LIQ PO PRN ×2 (17:08→22:10)
[2021-04-20] MEDS ORDERED: *HR* Metoprolol 5 MG/5 ML VIAL IVP ONE (17:46)
[2021-04-20] MEDS ORDERED: niCARdipine 40 MG/200 ML MLS IVC ONE (17:47)
[2021-04-20] MEDS ORDERED: Furosemide 40 MG/4 ML VIAL ONE (17:52)
[2021-04-20] MEDS ORDERED: Ketorolac 15 MG/ML VIAL IVP SCH (18:00)
[2021-04-20] MEDS ORDERED: *HR* HYDROMORPHONE 2 MG/ML VIAL ONE (18:05)
[2021-04-20 18:35] LABS: ABG Base Excess -4 mEq/L (-2 to 3); ABG HCO3 21 mEq/L (21-27); ABG Oxygen Saturation 92 % (95-98); ABG PCO2 37 mmHg (35-45); ABG PH 7.37 pH Units (7.32-7.45); ABG PO2 65 mmHg (85-104); ABG TCO2 23 mEq/L (20-26); Blood Gas VT 450 cc
[2021-04-20] MEDS ORDERED: *HR* HYDROmorphone 2 MG/ML SYRINGE IVP ONE (18:54)
[2021-04-20] MEDS ORDERED: *HR* HYDROmorphone (PF) 1 MG/ML SYRINGE ONE (18:55)
[2021-04-20] MEDS ORDERED: amLODIPine 5 MG TABLET PO SCH (19:15)
[2021-04-20] MEDS ORDERED: Melatonin 3 MG TABLET PO SCH (21:00)
[2021-04-20] MEDS ORDERED: Budesonide/Formoterol 160/4.5 1 PUFF INH IH SCH (22:00)
[2021-04-20] MEDS ORDERED: Ondansetron ODT 4 MG TAB.RAPDIS SL PRN (22:10)
[2021-04-20 22:29] LABS: Hematocrit 31.9 % (35.3-44.9)
[2021-04-20 22:30] LABS: Hemoglobin 10.2 g/dL (11.5-15.4)
[2021-04-20] MEDS ORDERED: CeFAZolin 2 GM/120 ML BAG IVPB SCH (23:00)
[2021-04-20] MEDS: Ketorolac 15 MG/ML VIAL IVP SCH (23:42)
[2021-04-20] MEDS: CeFAZolin 2 GM/120 ML BAG IVPB SCH (23:44)
[2021-04-20] MEDS: Aspirin 81 MG TAB.CHEW PO SCH (23:45)
[2021-04-21 03:29] LABS: Basophils % 0.2 %; Hematocrit 29.7 % (35.3-44.9); Hemoglobin 9.4 g/dL (11.5-15.4); Immature Granulocytes % 1.4 % (0-4); Lymphocytes % 7.1 %; Mean Corpuscular HGB Conc 31.6 g/dL (31.6-35.5); Mean Corpuscular Hemoglobin 29.7 pg (28.0-33.3); Mean Platelet Volume 9.5 fL (9.4-12.4); Monocytes # 0.9 K/mcL (0.0-1.3); Monocytes % 6.3 %; Neutrophils # 11.8 K/mcL (1.6-8.9); Platelet Count 204 K/mcL (140-400); Red Blood Count 3.16 M/mcL (3.82-4.97); Red Cell Distribution Width 14.2 % (11.5-14.5); White Blood Count 13.9 K/mcL (4.3-11.1)
[2021-04-21 05:13] LABS: Calcium 7.7 mg/dL (8.6-10.3); Potassium 4.2 mEq/L (3.5-5.1)
[2021-04-21] MEDS: Ketorolac 15 MG/ML VIAL IVP SCH (06:17)
[2021-04-21] MEDS: Budesonide/Formoterol 160/4.5 1 PUFF INH IH SCH ×2 (08:00→22:05)
[2021-04-21] MEDS ORDERED: Ascorbic Acid 500 MG TABLET PO SCH (08:00)
[2021-04-21] MEDS: Tiotropium 10 INH DOSE IH SCH (08:00)
[2021-04-21] MEDS: Cholecalciferol (D-3) 1,000 UNIT (25MCG) TABLET PO SCH (08:17)
[2021-04-21] MEDS: Aspirin 81 MG TAB.CHEW PO SCH ×2 (08:18→20:12)
[2021-04-21] MEDS: Ascorbic Acid 500 MG TABLET PO SCH ×2 (08:18→16:46)
[2021-04-21] MEDS: Multivit/Ca/Min/Fe/FA 1 TAB TABLET PO SCH (08:18)
[2021-04-21] MEDS: Piperacillin/Tazobactam 3.375 GM in 0.9 % Sodium Chloride Mini Bag 100 ML IVPB SCH ×2 (08:19→16:45)
[2021-04-21] MEDS ORDERED: Multivit/Ca/Min/Fe/FA 1 TAB TABLET PO SCH (09:00)
[2021-04-21] MEDS ORDERED: Cholecalciferol (D-3) 1,000 UNIT (25MCG) TABLET PO SCH (09:00)
[2021-04-21] MEDS ORDERED: Tiotropium 10 INH DOSE IH SCH (09:00)
[2021-04-21] MEDS ORDERED: amLODIPine 5 MG TABLET PO SCH ×3 (09:00→18:00)
[2021-04-21] MEDS: CeFAZolin 2 GM/120 ML BAG IVPB SCH (09:16)
[2021-04-21 13:30] LABS: Troponin I 0.52 ng/mL (< 0.04)
[2021-04-21] MEDS ORDERED: Perflutren Lipid Microsphere 1.3 ML in 0.9 % Sodium Chloride 8.7 ML IVP PRN (14:11)
[2021-04-21] MEDS ORDERED: Ringers Solution, Lactated 1,000 ML IVC SCH (14:15)
[2021-04-21] MEDS: Ketorolac 30 MG/ML VIAL IVP SCH ×2 (14:28→17:49)
[2021-04-21] MEDS ORDERED: Aspirin Enteric Coated 81 MG Tablet PO SCH (17:12)
[2021-04-21] MEDS: Latanoprost 2.5 ML BOTTLE BOTH EYES SCH (20:14)
[2021-04-21] MEDS: Fluticasone Propionate Nasal 50 MCG/SPRAY BOTTLE NS SCH (20:14)
[2021-04-22] MEDS: Piperacillin/Tazobactam 3.375 GM in 0.9 % Sodium Chloride Mini Bag 100 ML IVPB SCH ×3 (00:12→20:57)
[2021-04-22] MEDS: Ketorolac 30 MG/ML VIAL IVP SCH ×2 (00:14→05:48)
[2021-04-22 04:58] LABS: Basophils % 0.3 %; Eosinophils # 0.2 K/mcL (0.0-0.6); Eosinophils % 2.6 %; Hematocrit 24.8 % (35.3-44.9); Immature Granulocytes % 0.9 % (0-4); Lymphocytes # 1.4 K/mcL (0.6-4.6); Lymphocytes % 15.6 %; Mean Corpuscular HGB Conc 31.5 g/dL (31.6-35.5); Mean Corpuscular Hemoglobin 29.7 pg (28.0-33.3); Mean Corpuscular Volume 94.3 fL (83.0-100.0); Mean Platelet Volume 10.4 fL (9.4-12.4); Monocytes # 0.7 K/mcL (0.0-1.3); Monocytes % 7.5 %; Neutrophils # 6.8 K/mcL (1.6-8.9); Platelet Count 159 K/mcL (140-400); Red Blood Count 2.63 M/mcL (3.82-4.97); Red Cell Distribution Width 14.6 % (11.5-14.5); Segmented Neutrophils % 73.1 %; White Blood Count 9.3 K/mcL (4.3-11.1)
[2021-04-22 04:59] LABS: Hemoglobin 7.8 g/dL (11.5-15.4)
[2021-04-22 05:20] LABS: Calcium 8.3 mg/dL (8.6-10.3); Potassium 3.8 mEq/L (3.5-5.1)
[2021-04-22] MEDS ORDERED: *HR* OxyCODONE Immed Rel 5 MG TABLET PO PRN (07:38)
[2021-04-22] MEDS ORDERED: OMEPRAZOLE 10 MG PO SCH (09:00)
[2021-04-22] MEDS: Cholecalciferol (D-3) 1,000 UNIT (25MCG) TABLET PO SCH (10:04)
[2021-04-22] MEDS: Multivit/Ca/Min/Fe/FA 1 TAB TABLET PO SCH (10:04)
[2021-04-22] MEDS: Ascorbic Acid 500 MG TABLET PO SCH ×2 (10:04→17:30)
[2021-04-22] MEDS: Aspirin 81 MG TAB.CHEW PO SCH ×2 (10:05→20:55)
[2021-04-22] MEDS: Fluticasone Propionate Nasal 50 MCG/SPRAY BOTTLE NS SCH ×2 (10:06→20:45)
[2021-04-22] MEDS: Budesonide/Formoterol 160/4.5 1 PUFF INH IH SCH ×2 (10:15→20:33)
[2021-04-22] MEDS: Tiotropium 10 INH DOSE IH SCH (10:23)
[2021-04-22] MEDS ORDERED: 0.9 % Sodium Chloride 1,000 ML IVC SCH (13:45)
[2021-04-22] MEDS: Latanoprost 2.5 ML BOTTLE BOTH EYES SCH (20:44)
[2021-04-22 23:16] LABS: Amorphous Sediment,Urine Few per hpf (None-Few); Bacteria,Urine Few per hpf (None-Few); Bilirubin,Urine Negative (Negative); Blood,Urine Negative (Negative); Clarity,Urine Clear (Clear); Color,Urine Yellow (Yellow); Glucose,Urine (UA) Normal (Normal); Ketones,Urine Negative (Negative); Leukocyte Esterase,Urine Trace (Negative); Mucus,Urine Few per lpf (None-Few); Nitrite,Urine Negative (Negative); PH,Urine 5.5 pH Units (5.0-8.0); Protein,Urine 30 mg/dL (Neg-Trace); Specific Gravity,Urine 1.024 (1.010-1.025); Squamous Epithelial Cell,Urine Few per hpf (None-Few); Urobilinogen,Urine Normal (Normal)
[2021-04-22 23:21] LABS: Protein/Creatinine Ratio,Urine 0.6 mg/mg (0.00-0.20); Sodium, Urine 20.4 mEq/L
[2021-04-23 05:36] LABS: Hematocrit 23.2 % (35.3-44.9); Hemoglobin 7.4 g/dL (11.5-15.4); Mean Corpuscular HGB Conc 31.9 g/dL (31.6-35.5); Mean Corpuscular Volume 93.9 fL (83.0-100.0); Mean Platelet Volume 10.5 fL (9.4-12.4); Platelet Count 161 K/mcL (140-400); Red Blood Count 2.47 M/mcL (3.82-4.97); Red Cell Distribution Width 14.6 % (11.5-14.5); White Blood Count 8.5 K/mcL (4.3-11.1)
[2021-04-23 05:50] LABS: Uric Acid 5.9 mg/dL (2.3-7.6)
[2021-04-23 05:52] LABS: Calcium 8.7 mg/dL (8.6-10.3); Magnesium 1.9 mg/dL (1.6-2.6); Potassium 3.9 mEq/L (3.5-5.1)
[2021-04-23 06:15] LABS: Folate 10.5 ng/mL (3.0-16.0)
[2021-04-23] MEDS: Budesonide/Formoterol 160/4.5 1 PUFF INH IH SCH ×2 (07:59→22:49)
[2021-04-23] MEDS: Tiotropium 10 INH DOSE IH SCH (08:03)
[2021-04-23] MEDS ORDERED: 0.9 % Sodium Chloride 250 ML ONE (08:51)
[2021-04-23] MEDS: Cyanocobalamin (B-12) 1,000 MCG TABLET PO SCH (09:39)
[2021-04-23] MEDS: Cholecalciferol (D-3) 1,000 UNIT (25MCG) TABLET PO SCH (09:40)
[2021-04-23] MEDS: Sennosides/Docusate Sodium TABLET PO SCH ×2 (09:40→20:20)
[2021-04-23] MEDS: Aspirin 81 MG TAB.CHEW PO SCH ×2 (09:40→20:15)
[2021-04-23] MEDS: Ascorbic Acid 500 MG TABLET PO SCH ×2 (09:41→17:22)
[2021-04-23] MEDS: polyethylene glycoL 3350 17 GM POWD.PACK PO SCH ×2 (09:42→20:20)
[2021-04-23] MEDS: Fluticasone Propionate Nasal 50 MCG/SPRAY BOTTLE NS SCH ×2 (09:42→20:16)
[2021-04-23] MEDS: Multivit/Ca/Min/Fe/FA 1 TAB TABLET PO SCH (09:43)
[2021-04-23] MEDS ORDERED: *HR* Heparin 5,000 UNIT/ML VIAL IVP PRN ×2 (11:18)
[2021-04-23] MEDS: Piperacillin/Tazobactam 3.375 GM in 0.9 % Sodium Chloride Mini Bag 100 ML IVPB SCH ×2 (12:16→20:56)
[2021-04-23] MEDS: Heparin 25,000UNIT/250ML 1/2NS 25,000 UNIT/250 ML IV.SOLN IVC SCH (14:17)
[2021-04-23] MEDS: Iron Sucrose Complex 250 MG in 0.9 % Sodium Chloride 250 ML IVPB SCH (14:20)
[2021-04-23] MEDS: Latanoprost 2.5 ML BOTTLE BOTH EYES SCH (20:26)
[2021-04-24 06:55] LABS: Hematocrit 25.6 % (35.3-44.9); Hemoglobin 8.2 g/dL (11.5-15.4); Mean Corpuscular Hemoglobin 29.6 pg (28.0-33.3); Mean Corpuscular Volume 92.4 fL (83.0-100.0); Mean Platelet Volume 10.4 fL (9.4-12.4); Platelet Count 190 K/mcL (140-400); Red Blood Count 2.77 M/mcL (3.82-4.97); Red Cell Distribution Width 14.6 % (11.5-14.5); White Blood Count 8.7 K/mcL (4.3-11.1)
[2021-04-24 07:14] LABS: BUN/Creatinine Ratio 32 (6-26); Blood Urea Nitrogen 33 mg/dL (8-23); Carbon Dioxide 24 mEq/L (23-29); Chloride 108 mEq/L (98-107); Glucose 98 mg/dL (70-105); Osmolality,Calculated 297 (280-300); Potassium 3.8 mEq/L (3.5-5.1); Sodium 140 mEq/L (136-145); eGFR For African Americans > 60 (> 60); eGFR For Non-African Americans 51 (> 60)
[2021-04-24] MEDS ORDERED: Isovue-370 500 ML BOTTLE IVP ONE (07:23)
[2021-04-24] MEDS: Aspirin 81 MG TAB.CHEW PO SCH (08:59)
[2021-04-24] MEDS: Cholecalciferol (D-3) 1,000 UNIT (25MCG) TABLET PO SCH (08:59)
[2021-04-24] MEDS: Ascorbic Acid 500 MG TABLET PO SCH ×2 (09:00→17:24)
[2021-04-24] MEDS: Multivit/Ca/Min/Fe/FA 1 TAB TABLET PO SCH (09:00)
[2021-04-24] MEDS: Iron Sucrose Complex 250 MG in 0.9 % Sodium Chloride 250 ML IVPB SCH (09:00)
[2021-04-24] MEDS: Cyanocobalamin (B-12) 1,000 MCG TABLET PO SCH (09:00)
[2021-04-24] MEDS: Piperacillin/Tazobactam 3.375 GM in 0.9 % Sodium Chloride Mini Bag 100 ML IVPB SCH ×2 (09:01→17:24)
[2021-04-24] MEDS: Fluticasone Propionate Nasal 50 MCG/SPRAY BOTTLE NS SCH ×2 (09:03→20:46)
[2021-04-24] MEDS: Tiotropium 10 INH DOSE IH SCH (10:28)
[2021-04-24] MEDS: Budesonide/Formoterol 160/4.5 1 PUFF INH IH SCH ×2 (10:29→20:37)
[2021-04-24] MEDS: Heparin 25,000UNIT/250ML 1/2NS 25,000 UNIT/250 ML IV.SOLN IVC SCH ×2 (10:41→14:37)
[2021-04-24] MEDS ORDERED: 0.9 % Sodium Chloride 1,000 ML IVC SCH (11:00)
[2021-04-24] MEDS: Sennosides/Docusate Sodium TABLET PO SCH ×2 (11:07→20:47)
[2021-04-24] MEDS: polyethylene glycoL 3350 17 GM POWD.PACK PO SCH ×2 (11:07→20:47)
[2021-04-24] MEDS ORDERED: ceFAZolin 2,000 MG in 0.9 % Sodium Chloride 100 ML IVPB SCH (20:00)
[2021-04-24] MEDS: Latanoprost 2.5 ML BOTTLE BOTH EYES SCH (20:50)
[2021-04-24] MEDS: ceFAZolin 2,000 MG in 0.9 % Sodium Chloride 100 ML IVPB SCH (22:50)
[2021-04-24] MEDS ORDERED: Melatonin 3 MG TABLET PO PRN (23:13)
[2021-04-24] MEDS ORDERED: *HR* LORazepam 0.5 MG TABLET PO ONE (23:14)
[2021-04-25 00:45] LABS: Hematocrit 22.9 % (35.3-44.9); Hemoglobin 7.2 g/dL (11.5-15.4); Mean Corpuscular HGB Conc 31.4 g/dL (31.6-35.5); Mean Corpuscular Volume 92.3 fL (83.0-100.0); Mean Platelet Volume 9.9 fL (9.4-12.4); Platelet Count 186 K/mcL (140-400); Red Blood Count 2.48 M/mcL (3.82-4.97); Red Cell Distribution Width 14.8 % (11.5-14.5); White Blood Count 8.9 K/mcL (4.3-11.1)
[2021-04-25] MEDS: Piperacillin/Tazobactam 3.375 GM in 0.9 % Sodium Chloride Mini Bag 100 ML IVPB SCH ×2 (00:54→09:12)
[2021-04-25 01:01] LABS: Calcium 7.9 mg/dL (8.6-10.3); Potassium 3.7 mEq/L (3.5-5.1)
[2021-04-25] MEDS: ceFAZolin 2,000 MG in 0.9 % Sodium Chloride 100 ML IVPB SCH ×3 (05:12→22:05)
[2021-04-25] MEDS: Iron Sucrose Complex 250 MG in 0.9 % Sodium Chloride 250 ML IVPB SCH (07:42)
[2021-04-25] MEDS: Ascorbic Acid 500 MG TABLET PO SCH ×2 (08:20→17:26)
[2021-04-25] MEDS: Cholecalciferol (D-3) 1,000 UNIT (25MCG) TABLET PO SCH (08:20)
[2021-04-25] MEDS: Multivit/Ca/Min/Fe/FA 1 TAB TABLET PO SCH (08:20)
[2021-04-25] MEDS: Aspirin 81 MG TAB.CHEW PO SCH (08:20)
[2021-04-25] MEDS: Sennosides/Docusate Sodium TABLET PO SCH ×2 (08:20→22:04)
[2021-04-25] MEDS: polyethylene glycoL 3350 17 GM POWD.PACK PO SCH ×2 (08:21→22:04)
[2021-04-25] MEDS: Cyanocobalamin (B-12) 1,000 MCG TABLET PO SCH (08:21)
[2021-04-25] MEDS: Fluticasone Propionate Nasal 50 MCG/SPRAY BOTTLE NS SCH ×2 (08:21→22:05)
[2021-04-25] MEDS: Tiotropium 10 INH DOSE IH SCH (11:34)
[2021-04-25] MEDS: Budesonide/Formoterol 160/4.5 1 PUFF INH IH SCH ×2 (11:34→21:10)
[2021-04-25] MEDS: Heparin 25,000UNIT/250ML 1/2NS 25,000 UNIT/250 ML IV.SOLN IVC SCH (11:47)
[2021-04-25] MEDS ORDERED: 0.9 % Sodium Chloride 250 ML ONE (14:39)
[2021-04-25] MEDS ORDERED: Warfarin perPT PO PRN (18:00)
[2021-04-25] MEDS ORDERED: *HR* Warfarin 2.5 MG TABLET PO ONE (18:00)
[2021-04-25] MEDS: Latanoprost 2.5 ML BOTTLE BOTH EYES SCH (22:04)
[2021-04-26 02:31] LABS: Hematocrit 26.6 % (35.3-44.9); Hemoglobin 8.7 g/dL (11.5-15.4); Mean Corpuscular HGB Conc 32.7 g/dL (31.6-35.5); Mean Corpuscular Hemoglobin 30.2 pg (28.0-33.3); Mean Corpuscular Volume 92.4 fL (83.0-100.0); Mean Platelet Volume 10.1 fL (9.4-12.4); Platelet Count 230 K/mcL (140-400); Red Blood Count 2.88 M/mcL (3.82-4.97); White Blood Count 12.5 K/mcL (4.3-11.1)
[2021-04-26 02:45] LABS: BUN/Creatinine Ratio 26 (6-26); Blood Urea Nitrogen 25 mg/dL (8-23); Calcium 8.3 mg/dL (8.6-10.3); Carbon Dioxide 23 mEq/L (23-29); Chloride 108 mEq/L (98-107); Glucose 118 mg/dL (70-105); Osmolality,Calculated 293 (280-300); Potassium 3.9 mEq/L (3.5-5.1); Sodium 139 mEq/L (136-145); eGFR For African Americans > 60 (> 60); eGFR For Non-African Americans 56 (> 60)
[2021-04-26] MEDS: ceFAZolin 2,000 MG in 0.9 % Sodium Chloride 100 ML IVPB SCH ×3 (03:15→20:20)
[2021-04-26] MEDS: Heparin 25,000UNIT/250ML 1/2NS 25,000 UNIT/250 ML IV.SOLN IVC SCH (07:43)
[2021-04-26] MEDS: Budesonide/Formoterol 160/4.5 1 PUFF INH IH SCH ×2 (08:34→20:23)
[2021-04-26] MEDS: Tiotropium 10 INH DOSE IH SCH (08:35)
[2021-04-26] MEDS: Aspirin 81 MG TAB.CHEW PO SCH (08:38)
[2021-04-26] MEDS: Multivit/Ca/Min/Fe/FA 1 TAB TABLET PO SCH (08:38)
[2021-04-26] MEDS: Cyanocobalamin (B-12) 1,000 MCG TABLET PO SCH (08:38)
[2021-04-26] MEDS: Sennosides/Docusate Sodium TABLET PO SCH ×2 (08:38→20:17)
[2021-04-26] MEDS: Ascorbic Acid 500 MG TABLET PO SCH ×2 (08:38→18:09)
[2021-04-26] MEDS: Cholecalciferol (D-3) 1,000 UNIT (25MCG) TABLET PO SCH (08:38)
[2021-04-26] MEDS: polyethylene glycoL 3350 17 GM POWD.PACK PO SCH ×2 (09:02→20:18)
[2021-04-26] MEDS: Iron Sucrose Complex 250 MG in 0.9 % Sodium Chloride 250 ML IVPB SCH (09:03)
[2021-04-26] MEDS: *HR* Enoxaparin 80 MG/0.8 ML SYRINGE SQ SCH ×2 (09:03→18:08)
[2021-04-26] MEDS: Fluticasone Propionate Nasal 50 MCG/SPRAY BOTTLE NS SCH ×2 (12:37→20:18)
[2021-04-26 16:14] VITALS: BP 148/73; PULSE 87; TEMP 97.7; O2SAT 95
[2021-04-26] MEDS ORDERED: *HR* Warfarin 2.5 MG TABLET PO ONE (18:00)
[2021-04-26 18:02] LABS: Adenovirus Not Detected (Not Detect); Bordetella Pertussis Not Detected (Not Detect); Chlamydophila pneumoniae Not Detected (Not Detect); Coronavirus 229E Not Detected (Not Detect); Coronavirus HKU1 Not Detected (Not Detect); Coronavirus NL63 Not Detected (Not Detect); Coronavirus OC43 Not Detected (Not Detect); Human Metapneumovirus Not Detected (Not Detect); Human Rhinovirus/Enterovirus Not Detected (Not Detect); Influenza A Subtype 2009 H1 Not Detected (Not Detect); Influenza B Not Detected (Not Detect); Mycoplasma pneumoniae Not Detected (Not Detect); Parainfluenza Virus 1 Not Detected (Not Detect); Parainfluenza Virus 2 Not Detected (Not Detect); Parainfluenza Virus 3 Not Detected (Not Detect); Parainfluenza Virus 4 Not Detected (Not Detect); Respiratory Syncytial Virus Not Detected (Not Detect); SARS-CoV-2 Not Detected (Not Detect)
[2021-04-26 18:25] LABS: INR 1.6; Prothrombin Time 17.8 Seconds (9.4-12.1)
[2021-04-26] MEDS: Latanoprost 2.5 ML BOTTLE BOTH EYES SCH (20:17)
== END 2021-04-26 22:06 | DRG 521 ==
LOC: 4WAOSI → SUATTDRO 20:17 → 2NNU 04-20 21:29 → 4WAOSI 04-21 16:06
PROVIDERS: ADMIT Internal Medicine; ATTEND Internal Medicine

== ENCOUNTER 2021-05-02 19:55 | Inpatient (IN) ==
[2021-05-02] MEDS ORDERED: Naloxone 0.4 MG/ML INJ IVP PRN (23:14)
[2021-05-03] MEDS ORDERED: Pantoprazole 80 MG in 0.9 % Sodium Chloride 50 ML IVPB ONE (01:25)
[2021-05-03] MEDS ORDERED: 0.9 % Sodium Chloride 1,000 ML IVC SCH ×2 (01:30→02:58)
[2021-05-03 03:25] LABS: Hematocrit 18.5 % (35.3-44.9); Mean Corpuscular HGB Conc 32.4 g/dL (31.6-35.5); Mean Corpuscular Hemoglobin 29.3 pg (28.0-33.3); Mean Corpuscular Volume 90.2 fL (83.0-100.0); Mean Platelet Volume 10.7 fL (9.4-12.4); Platelet Count 265 K/mcL (140-400); Red Blood Count 2.05 M/mcL (3.82-4.97); Red Cell Distribution Width 17.2 % (11.5-14.5); White Blood Count 19.5 K/mcL (4.3-11.1)
[2021-05-03 03:42] LABS: BUN/Creatinine Ratio 35 (6-26); Blood Urea Nitrogen 30 mg/dL (8-23); Calcium 7.3 mg/dL (8.6-10.3); Carbon Dioxide 25 mEq/L (23-29); Chloride 105 mEq/L (98-107); Glucose 143 mg/dL (70-105); Osmolality,Calculated 291 (280-300); Sodium 136 mEq/L (136-145); eGFR For African Americans > 60 (> 60); eGFR For Non-African Americans > 60 (> 60)
[2021-05-03] MEDS ORDERED: 0.9 % Sodium Chloride 250 ML ONE ×2 (11:30→21:41)
[2021-05-03] MEDS ORDERED: Ipratropium/Albuterol Neb 3 ML IH PRN (13:22)
[2021-05-03] MEDS: Piperacillin/Tazobactam 3.375 GM in 0.9 % Sodium Chloride Mini Bag 100 ML IVPB SCH ×2 (16:53→20:06)
[2021-05-03] MEDS: Melatonin 3 MG TABLET PO SCH (20:06)
[2021-05-03] MEDS: polyethylene glycoL 3350 17 GM POWD.PACK PO SCH (20:07)
[2021-05-03 20:45] LABS: Hematocrit 18.7 % (35.3-44.9)
[2021-05-03] MEDS: Latanoprost 2.5 ML BOTTLE BOTH EYES SCH (22:04)
[2021-05-03] MEDS ORDERED: 0.9 % Sodium Chloride 250 ML IVC SCH (22:15)
[2021-05-04 02:53] LABS: Hematocrit 22.5 % (35.3-44.9); Hemoglobin 7.4 g/dL (11.5-15.4)
[2021-05-04 02:54] LABS: Eosinophils # 0.3 K/mcL (0.0-0.6); Hemoglobin 7.2 g/dL (11.5-15.4); Mean Corpuscular HGB Conc 31.3 g/dL (31.6-35.5); Mean Corpuscular Hemoglobin 29.6 pg (28.0-33.3); Mean Corpuscular Volume 94.7 fL (83.0-100.0); Mean Platelet Volume 9.8 fL (9.4-12.4); Nucleated Red Blood Cells 1.4 /100 WBC (0); Platelet Count 314 K/mcL (140-400); Red Blood Count 2.43 M/mcL (3.82-4.97); Red Cell Distribution Width 16.2 % (11.5-14.5); White Blood Count 16.1 K/mcL (4.3-11.1)
[2021-05-04 02:59] LABS: INR 1.1; Prothrombin Time 12.8 Seconds (9.4-12.1)
[2021-05-04 03:09] LABS: Alanine Aminotransferase 13 Units/L (7-52); Albumin 2.2 g/dL (3.5-5.7); Albumin/Globulin Ratio 1.2 (1.1-2.2); Alkaline Phosphatase 97 Units/L (34-104); Aspartate Amino Transferase 31 Units/L (13-39); Bilirubin,Direct 0.2 mg/dL (0.0-0.2); Bilirubin,Indirect 0.8 mg/dL (0.0-1.0); Blood Urea Nitrogen 19 mg/dL (8-23); Calcium 7.2 mg/dL (8.6-10.3); Carbon Dioxide 25 mEq/L (23-29); Chloride 108 mEq/L (98-107); Globulin 1.9 g/dL (2.4-3.5); Glucose 127 mg/dL (70-105); Iron 89 mcg/dL (50-170); Magnesium 1.7 mg/dL (1.6-2.6); Osmolality,Calculated 292 (280-300); Potassium 4.6 mEq/L (3.5-5.1); Sodium 139 mEq/L (136-145); Total Protein 4.1 g/dL (6.4-8.9)
[2021-05-04 03:15] LABS: Ferritin 1121 ng/mL (10-120)
[2021-05-04 03:22] LABS: Folate 13.4 ng/mL (3.0-16.0)
[2021-05-04 03:37] LABS: Anisocytosis 2+ (Not Present); Lymphocytes # 1.9 K/mcL (0.6-4.6); Monocytes # 0.3 K/mcL (0.0-1.3); Neutrophils # 13.2 K/mcL (1.6-8.9)
[2021-05-04 03:38] LABS: Platelet Estimate Normal (Normal); Polychromasia 1+ (Not Present); Reactive Lymphocytes Present (Not Present); Toxic Granulation Present (Not Present)
[2021-05-04 04:10] LABS: BUN/Creatinine Ratio 26 (6-26); eGFR For African Americans > 60 (> 60); eGFR For Non-African Americans > 60 (> 60)
[2021-05-04] MEDS: Piperacillin/Tazobactam 3.375 GM in 0.9 % Sodium Chloride Mini Bag 100 ML IVPB SCH ×3 (04:22→20:03)
[2021-05-04] MEDS: Cyanocobalamin (B-12) 1,000 MCG TABLET PO SCH (10:03)
[2021-05-04] MEDS: Aspirin Enteric Coated 81 MG Tablet PO SCH (10:03)
[2021-05-04] MEDS: Cholecalciferol (D-3) 1,000 UNIT (25MCG) TABLET PO SCH (10:03)
[2021-05-04] MEDS: amLODIPine 5 MG TABLET PO SCH (10:04)
[2021-05-04] MEDS: polyethylene glycoL 3350 17 GM POWD.PACK PO SCH ×2 (10:04→20:03)
[2021-05-04] MEDS ORDERED: Sennosides/Docusate Sodium TABLET PO ONE (10:58)
[2021-05-04 13:11] LABS: Hematocrit 22.6 % (35.3-44.9); Hemoglobin 7.2 g/dL (11.5-15.4)
[2021-05-04 20:01] LABS: Hematocrit 22.9 % (35.3-44.9)
[2021-05-04] MEDS: Sennosides/Docusate Sodium TABLET PO SCH (20:03)
[2021-05-04] MEDS: Latanoprost 2.5 ML BOTTLE BOTH EYES SCH (20:04)
[2021-05-04] MEDS: Melatonin 3 MG TABLET PO SCH (20:04)
[2021-05-04] MEDS: Budesonide/Formoterol 160/4.5 1 PUFF INH IH SCH (20:20)
[2021-05-05] MEDS ORDERED: traZODone 50 MG TABLET PO ONE (00:24)
[2021-05-05 03:08] LABS: Hemoglobin 6.6 g/dL (11.5-15.4); Mean Corpuscular HGB Conc 31.4 g/dL (31.6-35.5); Mean Corpuscular Hemoglobin 30.6 pg (28.0-33.3); Mean Corpuscular Volume 97.2 fL (83.0-100.0); Mean Platelet Volume 9.3 fL (9.4-12.4); Nucleated Red Blood Cells 1.2 /100 WBC (0); Platelet Count 276 K/mcL (140-400); Red Blood Count 2.16 M/mcL (3.82-4.97); Red Cell Distribution Width 17.1 % (11.5-14.5); White Blood Count 10.7 K/mcL (4.3-11.1)
[2021-05-05 03:13] LABS: INR 1.2
[2021-05-05 03:24] LABS: BUN/Creatinine Ratio 14 (6-26); Blood Urea Nitrogen 12 mg/dL (8-23); Calcium 7.4 mg/dL (8.6-10.3); Carbon Dioxide 28 mEq/L (23-29); Chloride 106 mEq/L (98-107); Glucose 105 mg/dL (70-105); Magnesium 1.7 mg/dL (1.6-2.6); Osmolality,Calculated 288 (280-300); Potassium 4.1 mEq/L (3.5-5.1); Sodium 139 mEq/L (136-145); eGFR For African Americans > 60 (> 60); eGFR For Non-African Americans > 60 (> 60)
[2021-05-05 03:37] LABS: Lymphocytes # 0.9 K/mcL (0.6-4.6); Monocytes # 0.2 K/mcL (0.0-1.3); Platelet Estimate Normal (Normal)
[2021-05-05 03:38] LABS: Anisocytosis 1+ (Not Present)
[2021-05-05] MEDS ORDERED: 0.9 % Sodium Chloride 250 ML ONE (04:58)
[2021-05-05] MEDS: Piperacillin/Tazobactam 3.375 GM in 0.9 % Sodium Chloride Mini Bag 100 ML IVPB SCH ×3 (08:05→22:29)
[2021-05-05 09:07] LABS: Hematocrit 25.2 % (35.3-44.9); Hemoglobin 8.1 g/dL (11.5-15.4)
[2021-05-05] MEDS ORDERED: Furosemide 20 MG TABLET PO ONE (09:42)
[2021-05-05] MEDS: Budesonide/Formoterol 160/4.5 1 PUFF INH IH SCH ×2 (11:17→20:50)
[2021-05-05] MEDS: polyethylene glycoL 3350 17 GM POWD.PACK PO SCH ×2 (12:10→22:24)
[2021-05-05] MEDS: Aspirin Enteric Coated 81 MG Tablet PO SCH (12:11)
[2021-05-05] MEDS: amLODIPine 5 MG TABLET PO SCH (12:11)
[2021-05-05] MEDS: Cholecalciferol (D-3) 1,000 UNIT (25MCG) TABLET PO SCH (12:11)
[2021-05-05] MEDS: Cyanocobalamin (B-12) 1,000 MCG TABLET PO SCH (12:11)
[2021-05-05] MEDS: Sennosides/Docusate Sodium TABLET PO SCH ×2 (12:12→22:24)
[2021-05-05] MEDS: traZODone 50 MG TABLET PO PRN (22:23)
[2021-05-05] MEDS: Latanoprost 2.5 ML BOTTLE BOTH EYES SCH (22:27)
[2021-05-05] MEDS: Melatonin 3 MG TABLET PO SCH (22:30)
[2021-05-06 01:12] LABS: Hematocrit 26.6 % (35.3-44.9); Hemoglobin 8.5 g/dL (11.5-15.4); Mean Corpuscular Volume 97.1 fL (83.0-100.0); Mean Platelet Volume 9.2 fL (9.4-12.4); Nucleated Red Blood Cells 0.5 /100 WBC (0); Platelet Count 280 K/mcL (140-400); Red Blood Count 2.74 M/mcL (3.82-4.97); Red Cell Distribution Width 17.3 % (11.5-14.5); White Blood Count 8.7 K/mcL (4.3-11.1)
[2021-05-06 01:26] LABS: Calcium 7.7 mg/dL (8.6-10.3)
[2021-05-06 01:35] LABS: Anisocytosis 1+ (Not Present); Lymphocytes # 1.7 K/mcL (0.6-4.6); Macrocytosis Present (Not Present); Neutrophils # 6.3 K/mcL (1.6-8.9); Platelet Estimate Normal (Normal); Polychromasia 1+ (Not Present); Reactive Lymphocytes Present (Not Present)
[2021-05-06] MEDS: Piperacillin/Tazobactam 3.375 GM in 0.9 % Sodium Chloride Mini Bag 100 ML IVPB SCH ×3 (05:49→20:30)
[2021-05-06] MEDS: Budesonide/Formoterol 160/4.5 1 PUFF INH IH SCH ×2 (07:37→20:31)
[2021-05-06] MEDS: polyethylene glycoL 3350 17 GM POWD.PACK PO SCH ×2 (10:40→21:57)
[2021-05-06] MEDS: amLODIPine 5 MG TABLET PO SCH (10:42)
[2021-05-06] MEDS: Cyanocobalamin (B-12) 1,000 MCG TABLET PO SCH (10:42)
[2021-05-06] MEDS: Sennosides/Docusate Sodium TABLET PO SCH ×2 (10:42→20:29)
[2021-05-06] MEDS: Aspirin Enteric Coated 81 MG Tablet PO SCH (10:42)
[2021-05-06] MEDS: Cholecalciferol (D-3) 1,000 UNIT (25MCG) TABLET PO SCH (10:43)
[2021-05-06] MEDS: Acetaminophen 325 MG TABLET PO PRN (12:42)
[2021-05-06 12:50] LABS: % Iron Saturation 45 % (15-50); Transferrin 141 mg/dL (200-400)
[2021-05-06] MEDS: Melatonin 3 MG TABLET PO SCH (20:29)
[2021-05-06] MEDS: Latanoprost 2.5 ML BOTTLE BOTH EYES SCH (20:37)
[2021-05-06] MEDS: Saline Nasal Spray 44 ML BOTTLE NS SCH (20:37)
[2021-05-07 02:43] LABS: Basophils # 0.1 K/mcL (0.0-0.2); Basophils % 0.8 %; Eosinophils # 0.3 K/mcL (0.0-0.6); Eosinophils % 4.2 %; Hematocrit 27.8 % (35.3-44.9); Hemoglobin 8.5 g/dL (11.5-15.4); Immature Granulocytes % 5.5 % (0-4); Lymphocytes # 1.2 K/mcL (0.6-4.6); Lymphocytes % 15.4 %; Mean Corpuscular HGB Conc 30.6 g/dL (31.6-35.5); Mean Corpuscular Hemoglobin 30.4 pg (28.0-33.3); Mean Corpuscular Volume 99.3 fL (83.0-100.0); Mean Platelet Volume 9.1 fL (9.4-12.4); Monocytes # 0.7 K/mcL (0.0-1.3); Monocytes % 9.3 %; Neutrophils # 5.1 K/mcL (1.6-8.9); Platelet Count 293 K/mcL (140-400); Red Cell Distribution Width 17.6 % (11.5-14.5); Segmented Neutrophils % 64.8 %; White Blood Count 7.9 K/mcL (4.3-11.1)
[2021-05-07 03:03] LABS: BUN/Creatinine Ratio 11 (6-26); Blood Urea Nitrogen 11 mg/dL (8-23); Calcium 7.8 mg/dL (8.6-10.3); Carbon Dioxide 25 mEq/L (23-29); Chloride 108 mEq/L (98-107); Glucose 132 mg/dL (70-105); Osmolality,Calculated 291 (280-300); Sodium 140 mEq/L (136-145); eGFR For African Americans > 60 (> 60); eGFR For Non-African Americans 54 (> 60)
[2021-05-07 03:13] LABS: Anisocytosis 1+ (Not Present); Platelet Estimate Normal (Normal); Polychromasia 1+ (Not Present)
[2021-05-07] MEDS: Piperacillin/Tazobactam 3.375 GM in 0.9 % Sodium Chloride Mini Bag 100 ML IVPB SCH ×3 (06:09→19:55)
[2021-05-07] MEDS: Budesonide/Formoterol 160/4.5 1 PUFF INH IH SCH ×2 (07:39→21:42)
[2021-05-07] MEDS: amLODIPine 5 MG TABLET PO SCH (10:19)
[2021-05-07] MEDS: Sennosides/Docusate Sodium TABLET PO SCH ×2 (10:19→19:56)
[2021-05-07] MEDS: Aspirin Enteric Coated 81 MG Tablet PO SCH (10:19)
[2021-05-07] MEDS: polyethylene glycoL 3350 17 GM POWD.PACK PO SCH ×2 (10:20→19:55)
[2021-05-07] MEDS: Cholecalciferol (D-3) 1,000 UNIT (25MCG) TABLET PO SCH (10:20)
[2021-05-07] MEDS: Cyanocobalamin (B-12) 1,000 MCG TABLET PO SCH (10:20)
[2021-05-07] MEDS: Saline Nasal Spray 44 ML BOTTLE NS SCH ×4 (10:20→19:56)
[2021-05-07] MEDS: Acetaminophen 325 MG TABLET PO PRN (10:29)
[2021-05-07] MEDS ORDERED: *HR* Heparin 5,000 UNIT/ML VIAL IVP PRN ×2 (12:16)
[2021-05-07] MEDS: Heparin 25,000 UNIT/250 ML 25,000 UNIT/250 ML IV.SOLN IVC SCH (13:33)
[2021-05-07] MEDS: Melatonin 3 MG TABLET PO SCH (19:54)
[2021-05-07] MEDS: Latanoprost 2.5 ML BOTTLE BOTH EYES SCH (19:57)
[2021-05-07] MEDS: traZODone 50 MG TABLET PO PRN (23:46)
[2021-05-08 03:20] LABS: Basophils # 0.1 K/mcL (0.0-0.2); Eosinophils # 0.4 K/mcL (0.0-0.6); Eosinophils % 4.9 %; Hematocrit 26.7 % (35.3-44.9); Hemoglobin 8.3 g/dL (11.5-15.4); Lymphocytes # 1.6 K/mcL (0.6-4.6); Lymphocytes % 20.4 %; Mean Corpuscular HGB Conc 31.1 g/dL (31.6-35.5); Mean Corpuscular Hemoglobin 30.7 pg (28.0-33.3); Mean Corpuscular Volume 98.9 fL (83.0-100.0); Mean Platelet Volume 9.1 fL (9.4-12.4); Monocytes # 0.9 K/mcL (0.0-1.3); Monocytes % 10.6 %; Neutrophils # 4.7 K/mcL (1.6-8.9); Platelet Count 289 K/mcL (140-400); Red Cell Distribution Width 17.5 % (11.5-14.5); Segmented Neutrophils % 59.1 %
[2021-05-08] MEDS: Piperacillin/Tazobactam 3.375 GM in 0.9 % Sodium Chloride Mini Bag 100 ML IVPB SCH ×3 (04:56→20:07)
[2021-05-08] MEDS: Budesonide/Formoterol 160/4.5 1 PUFF INH IH SCH ×2 (08:37→19:56)
[2021-05-08] MEDS: polyethylene glycoL 3350 17 GM POWD.PACK PO SCH ×2 (09:59→20:08)
[2021-05-08] MEDS: Aspirin Enteric Coated 81 MG Tablet PO SCH (10:52)
[2021-05-08] MEDS: Sennosides/Docusate Sodium TABLET PO SCH ×2 (10:52→20:08)
[2021-05-08] MEDS: Cholecalciferol (D-3) 1,000 UNIT (25MCG) TABLET PO SCH (10:52)
[2021-05-08] MEDS: Cyanocobalamin (B-12) 1,000 MCG TABLET PO SCH (10:52)
[2021-05-08] MEDS: Acetaminophen 325 MG TABLET PO PRN (10:52)
[2021-05-08] MEDS: amLODIPine 5 MG TABLET PO SCH (10:52)
[2021-05-08] MEDS: Saline Nasal Spray 44 ML BOTTLE NS SCH ×4 (10:53→20:12)
[2021-05-08] MEDS: Heparin 25,000 UNIT/250 ML 25,000 UNIT/250 ML IV.SOLN IVC SCH (11:06)
[2021-05-08] MEDS: Melatonin 3 MG TABLET PO SCH (20:08)
[2021-05-08] MEDS: traZODone 50 MG TABLET PO PRN (21:25)
[2021-05-08] MEDS: Latanoprost 2.5 ML BOTTLE BOTH EYES SCH (22:10)
[2021-05-09 04:31] LABS: Basophils # 0.1 K/mcL (0.0-0.2); Basophils % 0.8 %; Eosinophils # 0.4 K/mcL (0.0-0.6); Eosinophils % 5.4 %; Hematocrit 25.3 % (35.3-44.9); Lymphocytes # 1.7 K/mcL (0.6-4.6); Lymphocytes % 23.1 %; Mean Corpuscular HGB Conc 31.6 g/dL (31.6-35.5); Mean Corpuscular Hemoglobin 31.3 pg (28.0-33.3); Mean Corpuscular Volume 98.8 fL (83.0-100.0); Mean Platelet Volume 9.2 fL (9.4-12.4); Monocytes # 0.7 K/mcL (0.0-1.3); Monocytes % 9.8 %; Neutrophils # 4.1 K/mcL (1.6-8.9); Nucleated Red Blood Cells 0.3 /100 WBC (0); Platelet Count 308 K/mcL (140-400); Red Blood Count 2.56 M/mcL (3.82-4.97); Red Cell Distribution Width 17.2 % (11.5-14.5); Segmented Neutrophils % 56.9 %; White Blood Count 7.2 K/mcL (4.3-11.1)
[2021-05-09 04:33] LABS: Heparin anti-factor XA UFH 0.6 IU/mL (0.30-0.70)
[2021-05-09] MEDS: Piperacillin/Tazobactam 3.375 GM in 0.9 % Sodium Chloride Mini Bag 100 ML IVPB SCH ×3 (04:34→21:12)
[2021-05-09] MEDS ORDERED: *HR* Metoprolol 5 MG/5 ML VIAL IVP ONE (06:02)
[2021-05-09] MEDS ORDERED: Metoprolol XL (24 HR) Succ 25 MG TAB.ER.24H PO SCH (09:00)
[2021-05-09 09:44] LABS: INR 1.2; Prothrombin Time 13.6 Seconds (9.4-12.1)
[2021-05-09] MEDS: Budesonide/Formoterol 160/4.5 1 PUFF INH IH SCH ×2 (10:02→20:36)
[2021-05-09] MEDS: Saline Nasal Spray 44 ML BOTTLE NS SCH ×4 (10:20→21:11)
[2021-05-09] MEDS: Cyanocobalamin (B-12) 1,000 MCG TABLET PO SCH (10:20)
[2021-05-09] MEDS: Cholecalciferol (D-3) 1,000 UNIT (25MCG) TABLET PO SCH (10:20)
[2021-05-09] MEDS: Aspirin Enteric Coated 81 MG Tablet PO SCH (10:20)
[2021-05-09] MEDS: Sennosides/Docusate Sodium TABLET PO SCH ×3 (10:20→21:13)
[2021-05-09] MEDS: polyethylene glycoL 3350 17 GM POWD.PACK PO SCH ×2 (10:20→21:13)
[2021-05-09 10:42] LABS: BUN/Creatinine Ratio 12 (6-26); Blood Urea Nitrogen 11 mg/dL (8-23); Carbon Dioxide 23 mEq/L (23-29); Chloride 110 mEq/L (98-107); Glucose 148 mg/dL (70-105); Potassium 3.6 mEq/L (3.5-5.1); Sodium 141 mEq/L (136-145); eGFR For African Americans > 60 (> 60); eGFR For Non-African Americans 57 (> 60)
[2021-05-09 10:43] LABS: Calcium 8.1 mg/dL (8.6-10.3); Magnesium 1.8 mg/dL (1.6-2.6); Osmolality,Calculated 294 (280-300)
[2021-05-09] MEDS ORDERED: Metoprolol XL (24 HR) Succ 25 MG TAB.ER.24H PO ONE (17:00)
[2021-05-09] MEDS ORDERED: Warfarin perPT PO PRN (18:00)
[2021-05-09] MEDS ORDERED: *HR* Warfarin 2.5 MG TABLET PO ONE (18:00)
[2021-05-09] MEDS: *HR* Enoxaparin 80 MG/0.8 ML SYRINGE SQ SCH ×2 (20:12→21:20)
[2021-05-09] MEDS: Magnesium Oxide 400 MG TABLET PO SCH (20:13)
[2021-05-09] MEDS: Melatonin 3 MG TABLET PO SCH (21:08)
[2021-05-09] MEDS: traZODone 50 MG TABLET PO PRN (21:09)
[2021-05-09] MEDS: Acetaminophen 325 MG TABLET PO PRN (21:09)
[2021-05-09] MEDS: Latanoprost 2.5 ML BOTTLE BOTH EYES SCH (21:10)
[2021-05-10 04:38] LABS: Basophils # 0.1 K/mcL (0.0-0.2); Basophils % 0.8 %; Eosinophils # 0.3 K/mcL (0.0-0.6); Eosinophils % 4.5 %; Hematocrit 24.8 % (35.3-44.9); Hemoglobin 7.6 g/dL (11.5-15.4); Immature Granulocytes % 2.8 % (0-4); Lymphocytes # 1.5 K/mcL (0.6-4.6); Lymphocytes % 20.2 %; Mean Corpuscular HGB Conc 30.6 g/dL (31.6-35.5); Mean Corpuscular Hemoglobin 30.5 pg (28.0-33.3); Mean Corpuscular Volume 99.6 fL (83.0-100.0); Mean Platelet Volume 9.4 fL (9.4-12.4); Monocytes # 0.8 K/mcL (0.0-1.3); Monocytes % 10.2 %; Neutrophils # 4.7 K/mcL (1.6-8.9); Platelet Count 322 K/mcL (140-400); Red Blood Count 2.49 M/mcL (3.82-4.97); Red Cell Distribution Width 17.5 % (11.5-14.5); Segmented Neutrophils % 61.5 %; White Blood Count 7.6 K/mcL (4.3-11.1)
[2021-05-10 04:46] LABS: INR 1.3
[2021-05-10 04:51] LABS: BUN/Creatinine Ratio 17 (6-26); Blood Urea Nitrogen 17 mg/dL (8-23); Calcium 7.8 mg/dL (8.6-10.3); Carbon Dioxide 22 mEq/L (23-29); Chloride 112 mEq/L (98-107); Glucose 126 mg/dL (70-105); Magnesium 1.8 mg/dL (1.6-2.6); Osmolality,Calculated 293 (280-300); Potassium 4.1 mEq/L (3.5-5.1); Sodium 140 mEq/L (136-145); eGFR For African Americans > 60 (> 60); eGFR For Non-African Americans 53 (> 60)
[2021-05-10] MEDS: Piperacillin/Tazobactam 3.375 GM in 0.9 % Sodium Chloride Mini Bag 100 ML IVPB SCH ×3 (06:45→22:13)
[2021-05-10] MEDS: Budesonide/Formoterol 160/4.5 1 PUFF INH IH SCH ×2 (07:54→21:07)
[2021-05-10] MEDS: Sennosides/Docusate Sodium TABLET PO SCH ×2 (09:33→22:15)
[2021-05-10] MEDS: Aspirin Enteric Coated 81 MG Tablet PO SCH (09:33)
[2021-05-10] MEDS: Cyanocobalamin (B-12) 1,000 MCG TABLET PO SCH (09:34)
[2021-05-10] MEDS: Cholecalciferol (D-3) 1,000 UNIT (25MCG) TABLET PO SCH (09:34)
[2021-05-10] MEDS: Magnesium Oxide 400 MG TABLET PO SCH (09:34)
[2021-05-10] MEDS: Metoprolol XL (24 HR) Succ 25 MG TAB.ER.24H PO SCH (09:35)
[2021-05-10] MEDS: polyethylene glycoL 3350 17 GM POWD.PACK PO SCH ×2 (09:35→22:15)
[2021-05-10] MEDS: Saline Nasal Spray 44 ML BOTTLE NS SCH ×4 (09:35→22:15)
[2021-05-10] MEDS: *HR* Enoxaparin 80 MG/0.8 ML SYRINGE SQ SCH ×2 (09:44→22:20)
[2021-05-10] MEDS: Acetaminophen 325 MG TABLET PO PRN ×2 (09:44→22:14)
[2021-05-10 11:25] LABS: Hematocrit 27.3 % (35.3-44.9); Hemoglobin 8.2 g/dL (11.5-15.4)
[2021-05-10] MEDS ORDERED: *HR* Warfarin 2.5 MG TABLET PO ONE (18:00)
[2021-05-10] MEDS: traZODone 50 MG TABLET PO PRN (22:14)
[2021-05-10] MEDS: Melatonin 3 MG TABLET PO SCH (22:14)
[2021-05-10] MEDS: Latanoprost 2.5 ML BOTTLE BOTH EYES SCH (22:15)
[2021-05-11 02:23] LABS: Hematocrit 25.5 % (35.3-44.9); Hemoglobin 7.5 g/dL (11.5-15.4)
[2021-05-11 02:31] LABS: INR 1.2; Prothrombin Time 13.6 Seconds (9.4-12.1)
[2021-05-11] MEDS ORDERED: Iron Sucrose Complex 200 MG in 0.9 % Sodium Chloride 100 ML IVPB ONE (07:36)
[2021-05-11] MEDS: Budesonide/Formoterol 160/4.5 1 PUFF INH IH SCH ×2 (07:59→21:08)
[2021-05-11] MEDS: *HR* Enoxaparin 80 MG/0.8 ML SYRINGE SQ SCH ×2 (09:45→21:55)
[2021-05-11] MEDS: Cholecalciferol (D-3) 1,000 UNIT (25MCG) TABLET PO SCH (09:45)
[2021-05-11] MEDS: Aspirin Enteric Coated 81 MG Tablet PO SCH (09:45)
[2021-05-11] MEDS: Metoprolol XL (24 HR) Succ 25 MG TAB.ER.24H PO SCH (09:46)
[2021-05-11] MEDS: Magnesium Oxide 400 MG TABLET PO SCH (09:46)
[2021-05-11] MEDS: polyethylene glycoL 3350 17 GM POWD.PACK PO SCH ×2 (09:47→21:20)
[2021-05-11] MEDS: Saline Nasal Spray 44 ML BOTTLE NS SCH ×4 (09:47→21:17)
[2021-05-11] MEDS: Sennosides/Docusate Sodium TABLET PO SCH ×2 (09:47→21:13)
[2021-05-11] MEDS: Cyanocobalamin (B-12) 1,000 MCG TABLET PO SCH (09:49)
[2021-05-11 13:34] LABS: Hematocrit 28.9 % (35.3-44.9); Hemoglobin 8.4 g/dL (11.5-15.4)
[2021-05-11] MEDS ORDERED: *HR* Warfarin 4 MG TABLET PO ONE (18:00)
[2021-05-11] MEDS: Oxymetazoline Nasal SPRAY BOTTLE 15ML NS SCH ×2 (18:05→18:07)
[2021-05-11] MEDS: Acetaminophen 325 MG TABLET PO PRN (21:13)
[2021-05-11] MEDS: Melatonin 3 MG TABLET PO SCH (21:13)
[2021-05-11] MEDS: Latanoprost 2.5 ML BOTTLE BOTH EYES SCH (21:18)
[2021-05-11] MEDS: traZODone 50 MG TABLET PO PRN (21:25)
[2021-05-12 02:43] LABS: Hematocrit 26.1 % (35.3-44.9); Hemoglobin 7.7 g/dL (11.5-15.4)
[2021-05-12 02:58] LABS: INR 1.2; Prothrombin Time 13.9 Seconds (9.4-12.1)
[2021-05-12] MEDS: Oxymetazoline Nasal SPRAY BOTTLE 15ML NS SCH ×2 (07:21→17:24)
[2021-05-12] MEDS: Budesonide/Formoterol 160/4.5 1 PUFF INH IH SCH ×2 (08:15→21:44)
[2021-05-12] MEDS: Acetaminophen 325 MG TABLET PO PRN ×2 (08:19→17:25)
[2021-05-12] MEDS: polyethylene glycoL 3350 17 GM POWD.PACK PO SCH ×2 (08:19→20:14)
[2021-05-12] MEDS: Aspirin Enteric Coated 81 MG Tablet PO SCH (08:20)
[2021-05-12] MEDS: Metoprolol XL (24 HR) Succ 25 MG TAB.ER.24H PO SCH (08:20)
[2021-05-12] MEDS: Magnesium Oxide 400 MG TABLET PO SCH (08:20)
[2021-05-12] MEDS: Sennosides/Docusate Sodium TABLET PO SCH ×2 (08:20→20:14)
[2021-05-12] MEDS: Cholecalciferol (D-3) 1,000 UNIT (25MCG) TABLET PO SCH (08:20)
[2021-05-12] MEDS: Cyanocobalamin (B-12) 1,000 MCG TABLET PO SCH (08:21)
[2021-05-12] MEDS: Saline Nasal Spray 44 ML BOTTLE NS SCH ×4 (08:21→20:14)
[2021-05-12] MEDS ORDERED: *HR* Enoxaparin 80 MG/0.8 ML SYRINGE SQ ONE (12:00)
[2021-05-12] MEDS ORDERED: Iron Sucrose Complex 200 MG in 0.9 % Sodium Chloride 100 ML IVPB ONE (17:16)
[2021-05-12] MEDS ORDERED: *HR* Warfarin 4 MG TABLET PO ONE (18:00)
[2021-05-12] MEDS: traZODone 50 MG TABLET PO PRN (20:14)
[2021-05-12] MEDS: Melatonin 3 MG TABLET PO SCH (20:14)
[2021-05-12] MEDS: Latanoprost 2.5 ML BOTTLE BOTH EYES SCH (20:17)
[2021-05-12] MEDS: *HR* OxyCODONE Immed Rel 5 MG TABLET PO PRN (20:25)
[2021-05-13 05:48] LABS: Hematocrit 26.9 % (35.3-44.9)
[2021-05-13 05:56] LABS: INR 1.3; Prothrombin Time 14.6 Seconds (9.4-12.1)
[2021-05-13] MEDS: Oxymetazoline Nasal SPRAY BOTTLE 15ML NS SCH ×2 (06:32→18:10)
[2021-05-13] MEDS: Acetaminophen 325 MG TABLET PO PRN ×2 (06:35→14:07)
[2021-05-13] MEDS: *HR* OxyCODONE Immed Rel 5 MG TABLET PO PRN ×2 (06:56→16:28)
[2021-05-13] MEDS: Budesonide/Formoterol 160/4.5 1 PUFF INH IH SCH ×2 (08:06→20:04)
[2021-05-13] MEDS: Saline Nasal Spray 44 ML BOTTLE NS SCH ×4 (10:14→20:43)
[2021-05-13] MEDS: Sennosides/Docusate Sodium TABLET PO SCH ×2 (10:15→20:42)
[2021-05-13] MEDS: Magnesium Oxide 400 MG TABLET PO SCH (10:15)
[2021-05-13] MEDS: polyethylene glycoL 3350 17 GM POWD.PACK PO SCH ×2 (10:15→20:43)
[2021-05-13] MEDS: Cyanocobalamin (B-12) 1,000 MCG TABLET PO SCH (10:15)
[2021-05-13] MEDS: Aspirin Enteric Coated 81 MG Tablet PO SCH (10:15)
[2021-05-13] MEDS: Cholecalciferol (D-3) 1,000 UNIT (25MCG) TABLET PO SCH (10:16)
[2021-05-13] MEDS: Metoprolol XL (24 HR) Succ 25 MG TAB.ER.24H PO SCH (10:16)
[2021-05-13 15:15] LABS: Influenza A PCR Negative (Negative); Influenza B PCR Negative (Negative); Resp. Syncytial Virus PCR Negative (Negative)
[2021-05-13 15:21] LABS: SARS-CoV-2 by PCR (In House) Negative (Negative)
[2021-05-13] MEDS ORDERED: *HR* Warfarin 5 MG TABLET PO ONE (18:00)
[2021-05-13] MEDS: Latanoprost 2.5 ML BOTTLE BOTH EYES SCH (20:43)
[2021-05-13] MEDS: Melatonin 3 MG TABLET PO SCH (20:43)
[2021-05-13 20:52] VITALS: BP 133/71; PULSE 74; TEMP 97.9; O2SAT 94
== END 2021-05-13 21:38 | disposition other institution (70) | DRG 811 ==
LOC: 3ANU → OBSVTOIN 22:48 → SUATTDRO 22:48
PROVIDERS: ADMIT Internal Medicine; ATTEND Internal Medicine